=== PATIENT | male | born 1990 | race African-American/Black ===

== ENCOUNTER 2021-05-20 22:17 | Emergency (ER) | payer SELFPAY ==
[~2021-05-20] VITALS: Ht 198.1 cm; Wt 81.6 kg
[2021-05-20] MEDS ORDERED: CEPHALEXIN MONOHYDRATE 500 MG CAPSULE PO ONE (23:32)
[2021-05-20] MEDS: CEPHALEXIN MONOHYDRATE 500 MG CAPSULE PO ONE (23:36)
[2021-05-20] MEDS ORDERED: TRAM50TA2 PO (23:39)
[2021-05-20] MEDS ORDERED: CEPH500C2 PO (23:39)
[2021-05-20 23:49] VITALS: BP 123/65
== END 2021-05-20 23:49 | disposition home or self-care (01) ==
LOC: ER 22:22
DX: L03.011 Cellulitis of right finger (principal)